=== PATIENT | male | born 1960 | race Caucasian/White ===

== ENCOUNTER 2021-10-16 12:53 | Inpatient (IN) | payer SELFPAY ==
[2021-10-16 13:49] LABS: #Lymphocytes 1.2 thou/uL (1.20-3.40); #Monocytes 0.9 thou/uL (0.11-0.59); #Neutrophils 7.9 thou/uL (1.40-6.50); %Basophils 0.2 % (0.0-1.0); %Eosinophils 0.3 % (0.0-10.0); %Lymphocytes 11.9 % (21.0-51.0); %Neutrophils 78.6 % (42.0-75.0); Hemoglobin 13.6 g/dL (14.0-18.0); Mean Corpuscular Hemoglobin 33.5 pg (27.0-31.0); Mean Corpuscular Volume 98.6 fL (78.0-98.0); Mean Platelet Volume 7.1 fL (7.4-10.4); Platelet Count 188 thou/uL (130-400); RBC Distribution Width 13.5 % (11.5-14.5); Red Blood Cell (RBC) Count 4.04 mill/uL (4.70-6.10); White Blood Cell (WBC) Count 10.1 thou/uL (4.8-10.8)
[2021-10-16 14:12] LABS: ALT (SGPT) 71 U/L (8-55); AST (SGOT) 50 U/L (5-34); Albumin 3.2 g/dL (3.5-5.0); Alkaline Phosphatase 140 U/L (40-110); Anion Gap 18 mmol/L (10-20); BUN (Urea Nitrogen) 13 mg/dL (8.4-25.7); Bilirubin, Total 1.1 mg/dL (0.2-1.2); Calc. Creatinine Clearance 0 mL/min (70-130); Calcium 8.7 mg/dL (7.8-10.44); Carbon Dioxide 23 mmol/L (22-29); Chloride 98 mmol/L (98-107); Globulin 3.1 g/dL (2.4-3.5); Glucose 108 mg/dL (70-105); Magnesium 2.3 mg/dL (1.6-2.6); Potassium 3.7 mmol/L (3.5-5.1); Protein, Total 6.3 g/dL (6.0-8.3); Sodium 135 mmol/L (136-145)
[2021-10-16 16:04] LABS: Bilirubin Negative (Negative); Blood, Urine Negative (Negative); Clarity Clear (Clear); Glucose, Urine (Dipstick) Normal (Negative); Ketone, Urine Negative (Negative); Leukocyte Negative Leu/uL (Negative); Nitrite Negative (Negative); Protein, Urine (Dipstick) Negative (Neg-Trace); Specific Gravity, Urine 1.019 (1.002-1.036)
[2021-10-16 16:46] LABS: SARS-CoV-2 NAA Rapid Test DETECTED (NotDetected)
[2021-10-16 17:18] LABS: Troponin I 0.017 ng/mL (< 0.028)
[2021-10-16 20:33] LABS: Troponin I 0.016 ng/mL (< 0.028)
[2021-10-17] MEDS ORDERED: Ondansetron PF 4 MG/2 ML Vial IVP PRN (03:34)
[2021-10-17] MEDS: methylPREDNISolone Sod Succ 40 MG VIAL IVP SCH ×3 (05:43→17:49)
[2021-10-17 05:45] LABS: #Lymphocytes 0.5 thou/uL (1.20-3.40); #Monocytes 0.3 thou/uL (0.11-0.59); %Eosinophils 0.6 % (0.0-10.0); %Monocytes 4.9 % (0.0-10.0); %Neutrophils 85.5 % (42.0-75.0); Hemoglobin 11.3 g/dL (14.0-18.0); Mean Corpuscular HGB CONC 33.8 g/dL (32.0-36.0); Mean Corpuscular Hemoglobin 33.3 pg (27.0-31.0); Mean Corpuscular Volume 98.4 fL (78.0-98.0); Platelet Count 162 thou/uL (130-400); RBC Distribution Width 13.1 % (11.5-14.5); White Blood Cell (WBC) Count 5.9 thou/uL (4.8-10.8)
[2021-10-17 06:09] LABS: ALT (SGPT) 50 U/L (8-55); AST (SGOT) 27 U/L (5-34); Albumin 2.6 g/dL (3.5-5.0); Alkaline Phosphatase 115 U/L (40-110); Anion Gap 10 mmol/L (10-20); BUN (Urea Nitrogen) 11 mg/dL (8.4-25.7); Bilirubin, Total 0.4 mg/dL (0.2-1.2); Calc. Creatinine Clearance 167 mL/min (70-130); Calcium 8.2 mg/dL (7.8-10.44); Carbon Dioxide 27 mmol/L (22-29); Chloride 96 mmol/L (98-107); Globulin 3.1 g/dL (2.4-3.5); Glucose 184 mg/dL (70-105); Potassium 3.7 mmol/L (3.5-5.1); Protein, Total 5.7 g/dL (6.0-8.3); Sodium 129 mmol/L (136-145)
[2021-10-17] MEDS: Albuterol 200 PUFF (6.7GM INHALER) INH SCH ×5 (06:50→22:43)
[2021-10-17] MEDS: Enoxaparin Sodium 40 MG/0.4 ML SYRINGE SC SCH (08:50)
[2021-10-17] MEDS: Zinc Sulfate 220 MG CAP PO SCH (08:50)
[2021-10-17] MEDS: Ascorbic Acid 500 mg Chewable Tablet PO SCH (08:50)
[2021-10-17] MEDS ORDERED: Lorazepam 1 MG TAB PO PRN (09:42)
[2021-10-17] MEDS ORDERED: Lorazepam 2 MG/ML VIAL IM PRN (09:42)
[2021-10-17] MEDS ORDERED: Electrolyte Replacement Protocol 1 EACH FS SCH (09:45)
[2021-10-17] MEDS ORDERED: hydrALAZINE 20 MG/ML VIAL SLOW IVP PRN (10:06)
[2021-10-17] MEDS ORDERED: Amlodipine 5 MG TAB PO SCH (10:15)
[2021-10-17 10:41] LABS: Phosphorus 2.8 mg/dL (2.3-4.7)
[2021-10-17] MEDS ORDERED: Labetalol HCl 100 MG/20 ML VIAL SLOW IVP PRN (12:40)
[2021-10-17] MEDS ORDERED: Metoprolol Tartrate 5 MG/5 ML VIAL IVP SCH (12:45)
[2021-10-17] MEDS ORDERED: cloNIDine 0.2 MG TAB PO SCH (12:45)
[2021-10-17] MEDS ORDERED: Diltiazem 125 MG in Sodium Chloride 0.9% 100 ML IVPB SCH (13:00)
[2021-10-17] MEDS ORDERED: Magnesium 2 GM/50 ML 2 GM in Premix Bag 1 BAG IVPB SCH (13:00)
[2021-10-17] MEDS ORDERED: Nadolol 40 MG TAB PO SCH (14:00)
[2021-10-17] MEDS: PHOS-NAK 1 PKT PACK PO SCH ×3 (14:19→20:39)
[2021-10-18] MEDS: methylPREDNISolone Sod Succ 40 MG VIAL IVP SCH ×4 (00:11→17:15)
[2021-10-18] MEDS: PHOS-NAK 1 PKT PACK PO SCH (02:28)
[2021-10-18] MEDS: Albuterol 200 PUFF (6.7GM INHALER) INH SCH ×6 (02:29→22:57)
[2021-10-18 06:49] LABS: #Lymphocytes 0.7 thou/uL (1.20-3.40); #Monocytes 0.4 thou/uL (0.11-0.59); #Neutrophils 9.9 thou/uL (1.40-6.50); %Basophils 0.1 % (0.0-1.0); %Eosinophils 0.3 % (0.0-10.0); %Lymphocytes 6.7 % (21.0-51.0); %Monocytes 3.4 % (0.0-10.0); %Neutrophils 89.4 % (42.0-75.0); Hemoglobin 12.1 g/dL (14.0-18.0); Mean Corpuscular Hemoglobin 33.3 pg (27.0-31.0); Mean Platelet Volume 7.3 fL (7.4-10.4); Platelet Count 197 thou/uL (130-400); Red Blood Cell (RBC) Count 3.64 mill/uL (4.70-6.10); White Blood Cell (WBC) Count 11.1 thou/uL (4.8-10.8)
[2021-10-18 07:10] LABS: ALT (SGPT) 50 U/L (8-55); AST (SGOT) 30 U/L (5-34); Albumin 2.7 g/dL (3.5-5.0); Alkaline Phosphatase 106 U/L (40-110); Anion Gap 13 mmol/L (10-20); BUN (Urea Nitrogen) 13 mg/dL (8.4-25.7); Bilirubin, Total 0.5 mg/dL (0.2-1.2); CRP (Inflammatory) 1.59 mg/dL (= or < 0.5); Calc. Creatinine Clearance 170 mL/min (70-130); Calcium 8.5 mg/dL (7.8-10.44); Carbon Dioxide 27 mmol/L (22-29); Chloride 98 mmol/L (98-107); Globulin 3.2 g/dL (2.4-3.5); Glucose 124 mg/dL (70-105); Potassium 4.5 mmol/L (3.5-5.1); Protein, Total 5.9 g/dL (6.0-8.3); Sodium 133 mmol/L (136-145)
[2021-10-18] MEDS: Folic Acid 1 MG TAB PO SCH (08:16)
[2021-10-18] MEDS: Zinc Sulfate 220 MG CAP PO SCH (08:16)
[2021-10-18] MEDS: Enoxaparin Sodium 40 MG/0.4 ML SYRINGE SC SCH (08:16)
[2021-10-18] MEDS: Amlodipine 5 MG TAB PO SCH (08:17)
[2021-10-18] MEDS: Multivit, Therapeutic 1 TAB PO SCH (08:17)
[2021-10-18] MEDS: Ascorbic Acid 500 mg Chewable Tablet PO SCH (08:17)
[2021-10-18] MEDS: Thiamine 100 MG TAB PO SCH (08:17)
[2021-10-18] MEDS ORDERED: Amlodipine 5 MG TAB PO SCH (09:00)
[2021-10-18] MEDS ORDERED: Lorazepam 1 MG TAB PO PRN (09:43)
[2021-10-18] MEDS: Torsemide 20 MG TAB PO SCH (10:00)
[2021-10-18] MEDS: Mometasone 200 MCG/Formoterol 5 MCG 120 PUFF INHALER INH SCH (17:15)
[2021-10-19] MEDS: methylPREDNISolone Sod Succ 40 MG VIAL IVP SCH ×3 (00:48→13:22)
[2021-10-19] MEDS: Albuterol 200 PUFF (6.7GM INHALER) INH SCH ×6 (02:58→23:09)
[2021-10-19] MEDS: Mometasone 200 MCG/Formoterol 5 MCG 120 PUFF INHALER INH SCH ×2 (06:11→18:01)
[2021-10-19 06:49] LABS: #Lymphocytes 0.8 thou/uL (1.20-3.40); #Monocytes 0.6 thou/uL (0.11-0.59); #Neutrophils 8.8 thou/uL (1.40-6.50); %Eosinophils 0.3 % (0.0-10.0); %Lymphocytes 7.8 % (21.0-51.0); %Monocytes 5.4 % (0.0-10.0); %Neutrophils 86.6 % (42.0-75.0); Hemoglobin 12.7 g/dL (14.0-18.0); Mean Corpuscular Volume 97.1 fL (78.0-98.0); Mean Platelet Volume 7.3 fL (7.4-10.4); Platelet Count 220 thou/uL (130-400); Red Blood Cell (RBC) Count 3.96 mill/uL (4.70-6.10); White Blood Cell (WBC) Count 10.2 thou/uL (4.8-10.8)
[2021-10-19 07:01] LABS: ALT (SGPT) 52 U/L (8-55); AST (SGOT) 34 U/L (5-34); Albumin 2.7 g/dL (3.5-5.0); Alkaline Phosphatase 105 U/L (40-110); Anion Gap 12 mmol/L (10-20); BUN (Urea Nitrogen) 15 mg/dL (8.4-25.7); Bilirubin, Total 0.4 mg/dL (0.2-1.2); Calc. Creatinine Clearance 164 mL/min (70-130); Calcium 8.7 mg/dL (7.8-10.44); Carbon Dioxide 25 mmol/L (22-29); Chloride 98 mmol/L (98-107); Globulin 3.3 g/dL (2.4-3.5); Glucose 122 mg/dL (70-105); Potassium 4.2 mmol/L (3.5-5.1); Sodium 131 mmol/L (136-145)
[2021-10-19] MEDS: Enoxaparin Sodium 40 MG/0.4 ML SYRINGE SC SCH (08:11)
[2021-10-19] MEDS: Ascorbic Acid 500 mg Chewable Tablet PO SCH (08:12)
[2021-10-19] MEDS: Zinc Sulfate 220 MG CAP PO SCH (08:12)
[2021-10-19] MEDS: Torsemide 20 MG TAB PO SCH (08:14)
[2021-10-19] MEDS: Amlodipine 5 MG TAB PO SCH (08:14)
[2021-10-19] MEDS: Multivit, Therapeutic 1 TAB PO SCH (08:14)
[2021-10-19] MEDS: Thiamine 100 MG TAB PO SCH (08:14)
[2021-10-19] MEDS: Spironolactone 100 MG TAB PO SCH (08:14)
[2021-10-19] MEDS: Folic Acid 1 MG TAB PO SCH (08:14)
[2021-10-19] MEDS ORDERED: FLU VACC QS2021-22(6MOS UP)/PF 60 MCG/0.5 ML SYRINGE IM ONE (09:00)
[2021-10-19] MEDS ORDERED: Lorazepam 1 MG TAB PO PRN (09:43)
[2021-10-19] MEDS: Dexamethasone 4 MG TAB PO SCH (20:15)
[2021-10-20] MEDS: Albuterol 200 PUFF (6.7GM INHALER) INH SCH ×6 (03:19→23:29)
[2021-10-20 05:54] LABS: Hemoglobin 12.5 g/dL (14.0-18.0); Mean Corpuscular HGB CONC 32.2 g/dL (32.0-36.0); Mean Corpuscular Hemoglobin 31.1 pg (27.0-31.0); Mean Corpuscular Volume 96.5 fL (78.0-98.0); Mean Platelet Volume 7.3 fL (7.4-10.4); Platelet Count 278 thou/uL (130-400); RBC Distribution Width 12.9 % (11.5-14.5); Red Blood Cell (RBC) Count 4.03 mill/uL (4.70-6.10); White Blood Cell (WBC) Count 13.4 thou/uL (4.8-10.8)
[2021-10-20 06:11] LABS: Band 6 % (5-11); MDiff Complete? YES; Monocytes 12 % (0-10); Myelocyte 1 % (0-0); Neutrophil 76 % (42-75)
[2021-10-20] MEDS: Mometasone 200 MCG/Formoterol 5 MCG 120 PUFF INHALER INH SCH ×2 (06:13→18:34)
[2021-10-20 06:31] LABS: ALT (SGPT) 84 U/L (8-55); AST (SGOT) 62 U/L (5-34); Albumin 2.8 g/dL (3.5-5.0); Alkaline Phosphatase 129 U/L (40-110); Anion Gap 14 mmol/L (10-20); BUN (Urea Nitrogen) 19 mg/dL (8.4-25.7); Bilirubin, Total 0.4 mg/dL (0.2-1.2); Calc. Creatinine Clearance 146 mL/min (70-130); Calcium 8.4 mg/dL (7.8-10.44); Carbon Dioxide 26 mmol/L (22-29); Chloride 96 mmol/L (98-107); Globulin 3.3 g/dL (2.4-3.5); Glucose 224 mg/dL (70-105); Potassium 3.6 mmol/L (3.5-5.1); Protein, Total 6.1 g/dL (6.0-8.3); Sodium 132 mmol/L (136-145)
[2021-10-20] MEDS ORDERED: Azithromycin 250 MG TAB PO SCH (09:00)
[2021-10-20] MEDS: Dexamethasone 4 MG TAB PO SCH ×2 (09:33→20:29)
[2021-10-20] MEDS: Ascorbic Acid 500 mg Chewable Tablet PO SCH (09:33)
[2021-10-20] MEDS: Enoxaparin Sodium 40 MG/0.4 ML SYRINGE SC SCH (09:33)
[2021-10-20] MEDS: Thiamine 100 MG TAB PO SCH (09:35)
[2021-10-20] MEDS: Zinc Sulfate 220 MG CAP PO SCH (09:35)
[2021-10-20] MEDS: Multivit, Therapeutic 1 TAB PO SCH (09:36)
[2021-10-20] MEDS: Folic Acid 1 MG TAB PO SCH (09:36)
[2021-10-20] MEDS: Spironolactone 100 MG TAB PO SCH (09:36)
[2021-10-20] MEDS: Amlodipine 5 MG TAB PO SCH (09:36)
[2021-10-20] MEDS: Torsemide 20 MG TAB PO SCH (09:37)
[2021-10-20] MEDS ORDERED: Lorazepam 0.5 MG TAB PO PRN (09:43)
[2021-10-21] MEDS: Albuterol 200 PUFF (6.7GM INHALER) INH SCH ×6 (02:52→22:22)
[2021-10-21] MEDS: Mometasone 200 MCG/Formoterol 5 MCG 120 PUFF INHALER INH SCH ×2 (05:55→19:46)
[2021-10-21] MEDS: Nitroglycerin 2% Ointment 1 INCH/1 GM Packet ONE ×2 (07:42→10:05)
[2021-10-21] MEDS: Amlodipine 5 MG TAB PO SCH (07:43)
[2021-10-21] MEDS: Spironolactone 100 MG TAB PO SCH (07:43)
[2021-10-21] MEDS ORDERED: Enoxaparin Sodium 80 MG/0.8 ML SYRINGE SC SCH (07:45)
[2021-10-21] MEDS: Ascorbic Acid 500 mg Chewable Tablet PO SCH (07:47)
[2021-10-21] MEDS: Dexamethasone 4 MG TAB PO SCH ×2 (07:50→20:46)
[2021-10-21] MEDS: Folic Acid 1 MG TAB PO SCH (07:50)
[2021-10-21] MEDS: Multivit, Therapeutic 1 TAB PO SCH (07:50)
[2021-10-21] MEDS: Thiamine 100 MG TAB PO SCH (07:53)
[2021-10-21] MEDS: Zinc Sulfate 220 MG CAP PO SCH (07:54)
[2021-10-21] MEDS: Torsemide 20 MG TAB PO SCH (07:54)
[2021-10-21] MEDS ORDERED: Nitroglycerin 2% Ointment 1 INCH/1 GM Packet TOP SCH (08:00)
[2021-10-21] MEDS: Doxycycline 100 MG CAP PO SCH ×2 (09:02→20:46)
[2021-10-21] MEDS: Nitroglycerin 2% Ointment 1 INCH/1 GM Packet TOP SCH ×2 (10:06→19:55)
[2021-10-21 12:40] LABS: Hemoglobin 13.4 g/dL (14.0-18.0); Mean Corpuscular Hemoglobin 32.4 pg (27.0-31.0); Mean Corpuscular Volume 98.2 fL (78.0-98.0); Mean Platelet Volume 7.2 fL (7.4-10.4); Platelet Count 302 thou/uL (130-400); Red Blood Cell (RBC) Count 4.14 mill/uL (4.70-6.10); White Blood Cell (WBC) Count 15.2 thou/uL (4.8-10.8)
[2021-10-21 12:51] LABS: Anion Gap 14 mmol/L (10-20); BUN (Urea Nitrogen) 17 mg/dL (8.4-25.7); Calc. Creatinine Clearance 135 mL/min (70-130); Calcium 8.3 mg/dL (7.8-10.44); Carbon Dioxide 32 mmol/L (22-29); Chloride 92 mmol/L (98-107); Glucose 233 mg/dL (70-105); Potassium 3.4 mmol/L (3.5-5.1); Sodium 135 mmol/L (136-145)
[2021-10-21] MEDS ORDERED: Potassium Chloride 20 MEQ TAB PO SCH (13:15)
[2021-10-21 13:55] LABS: Band 3 % (5-11); Lymphocytes 9 % (21-51); MDiff Complete? YES; Monocytes 5 % (0-10); Neutrophil 82 % (42-75); Platelet Morphology Comment Appears Adequate; Polychromasia SLIGHT = 2-3 cells (100X) (0-2/hpf)
[2021-10-22] MEDS: Albuterol 200 PUFF (6.7GM INHALER) INH SCH ×6 (02:59→22:27)
[2021-10-22] MEDS: Mometasone 200 MCG/Formoterol 5 MCG 120 PUFF INHALER INH SCH ×2 (05:39→17:45)
[2021-10-22] MEDS: Ascorbic Acid 500 mg Chewable Tablet PO SCH (08:11)
[2021-10-22] MEDS: Multivit, Therapeutic 1 TAB PO SCH (08:11)
[2021-10-22] MEDS: Dexamethasone 4 MG TAB PO SCH ×2 (08:11→21:38)
[2021-10-22] MEDS: Enoxaparin Sodium 40 MG/0.4 ML SYRINGE SC SCH (08:11)
[2021-10-22] MEDS: Thiamine 100 MG TAB PO SCH (08:12)
[2021-10-22] MEDS: Nitroglycerin 2% Ointment 1 INCH/1 GM Packet TOP SCH ×2 (08:12)
[2021-10-22] MEDS: Zinc Sulfate 220 MG CAP PO SCH (08:12)
[2021-10-22] MEDS: Spironolactone 100 MG TAB PO SCH (08:12)
[2021-10-22] MEDS: Torsemide 20 MG TAB PO SCH (08:12)
[2021-10-22] MEDS: Amlodipine 5 MG TAB PO SCH (08:13)
[2021-10-22] MEDS: Folic Acid 1 MG TAB PO SCH (08:13)
[2021-10-22] MEDS: Doxycycline 100 MG CAP PO SCH ×2 (08:13→21:38)
[2021-10-23] MEDS: Albuterol 200 PUFF (6.7GM INHALER) INH SCH ×6 (02:30→23:05)
[2021-10-23] MEDS: Mometasone 200 MCG/Formoterol 5 MCG 120 PUFF INHALER INH SCH ×2 (06:11→19:17)
[2021-10-23 08:37] LABS: Hemoglobin 12.3 g/dL (14.0-18.0); Mean Corpuscular Hemoglobin 31.6 pg (27.0-31.0); Mean Corpuscular Volume 98.7 fL (78.0-98.0); Mean Platelet Volume 7.1 fL (7.4-10.4); Platelet Count 285 thou/uL (130-400); RBC Distribution Width 13.3 % (11.5-14.5); Red Blood Cell (RBC) Count 3.88 mill/uL (4.70-6.10); White Blood Cell (WBC) Count 24.6 thou/uL (4.8-10.8)
[2021-10-23 08:57] LABS: Anion Gap 14 mmol/L (10-20); BUN (Urea Nitrogen) 23 mg/dL (8.4-25.7); Calc. Creatinine Clearance 136 mL/min (70-130); Calcium 8.6 mg/dL (7.8-10.44); Carbon Dioxide 29 mmol/L (22-29); Chloride 98 mmol/L (98-107); Glucose 207 mg/dL (70-105); Potassium 4.6 mmol/L (3.5-5.1); Sodium 136 mmol/L (136-145)
[2021-10-23] MEDS: Thiamine 100 MG TAB PO SCH (09:05)
[2021-10-23] MEDS: Folic Acid 1 MG TAB PO SCH (09:05)
[2021-10-23] MEDS: Multivit, Therapeutic 1 TAB PO SCH (09:06)
[2021-10-23] MEDS: Zinc Sulfate 220 MG CAP PO SCH (09:06)
[2021-10-23] MEDS: Torsemide 20 MG TAB PO SCH (09:06)
[2021-10-23] MEDS: Ascorbic Acid 500 mg Chewable Tablet PO SCH (09:06)
[2021-10-23] MEDS: Amlodipine 5 MG TAB PO SCH (09:06)
[2021-10-23] MEDS: Doxycycline 100 MG CAP PO SCH ×2 (09:06→20:38)
[2021-10-23] MEDS: Dexamethasone 4 MG TAB PO SCH (09:06)
[2021-10-23] MEDS: Spironolactone 100 MG TAB PO SCH (09:06)
[2021-10-23] MEDS: Enoxaparin Sodium 40 MG/0.4 ML SYRINGE SC SCH (09:07)
[2021-10-23 09:45] LABS: Band 3 % (5-11); Lymphocytes 8 % (21-51); MDiff Complete? YES; Metamyelocyte 3 % (0-0); Monocytes 4 % (0-10); Myelocyte 3 % (0-0); Neutrophil 79 % (42-75); Platelet Morphology Comment Appears Adequate; Polychromasia SLIGHT = 2-3 cells (100X) (0-2/hpf)
[2021-10-24] MEDS: Albuterol 200 PUFF (6.7GM INHALER) INH SCH ×6 (02:31→20:49)
[2021-10-24] MEDS: Mometasone 200 MCG/Formoterol 5 MCG 120 PUFF INHALER INH SCH ×2 (06:29→18:18)
[2021-10-24 06:42] LABS: Anion Gap 15 mmol/L (10-20); BUN (Urea Nitrogen) 24 mg/dL (8.4-25.7); CRP (Inflammatory) Less than 0.50 mg/dL (= or < 0.5); Calc. Creatinine Clearance 141 mL/min (70-130); Calcium 8.9 mg/dL (7.8-10.44); Carbon Dioxide 27 mmol/L (22-29); Chloride 96 mmol/L (98-107); Glucose 168 mg/dL (70-105); Sodium 134 mmol/L (136-145)
[2021-10-24 06:45] LABS: Band 12 % (5-11); Hemoglobin 12.6 g/dL (14.0-18.0); Lymphocytes 6 % (21-51); MDiff Complete? YES; Mean Corpuscular HGB CONC 32.9 g/dL (32.0-36.0); Mean Corpuscular Hemoglobin 32.7 pg (27.0-31.0); Mean Corpuscular Volume 99.3 fL (78.0-98.0); Mean Platelet Volume 6.9 fL (7.4-10.4); Monocytes 4 % (0-10); Myelocyte 3 % (0-0); Neutrophil 75 % (42-75); Platelet Count 298 thou/uL (130-400); RBC Distribution Width 13.2 % (11.5-14.5); Red Blood Cell (RBC) Count 3.87 mill/uL (4.70-6.10); White Blood Cell (WBC) Count 27.9 thou/uL (4.8-10.8)
[2021-10-24] MEDS: Doxycycline 100 MG CAP PO SCH ×2 (10:56→20:45)
[2021-10-24] MEDS: Multivit, Therapeutic 1 TAB PO SCH (10:56)
[2021-10-24] MEDS: Torsemide 20 MG TAB PO SCH (10:56)
[2021-10-24] MEDS: Amlodipine 5 MG TAB PO SCH (10:56)
[2021-10-24] MEDS: Zinc Sulfate 220 MG CAP PO SCH (10:56)
[2021-10-24] MEDS: Spironolactone 100 MG TAB PO SCH (10:57)
[2021-10-24] MEDS: Thiamine 100 MG TAB PO SCH (10:57)
[2021-10-24] MEDS: Dexamethasone 4 MG TAB PO SCH (10:57)
[2021-10-24] MEDS: Ascorbic Acid 500 mg Chewable Tablet PO SCH (10:57)
[2021-10-24] MEDS: Folic Acid 1 MG TAB PO SCH (10:57)
[2021-10-24] MEDS: Enoxaparin Sodium 40 MG/0.4 ML SYRINGE SC SCH (10:58)
[2021-10-24] MEDS: guaiFENesin ER 600 MG TAB PO SCH (20:46)
[2021-10-25] MEDS: Albuterol 200 PUFF (6.7GM INHALER) INH SCH ×6 (03:46→19:57)
[2021-10-25 06:30] LABS: Mean Corpuscular HGB CONC 32.7 g/dL (32.0-36.0); Mean Corpuscular Hemoglobin 32.1 pg (27.0-31.0); Mean Corpuscular Volume 98.2 fL (78.0-98.0); Mean Platelet Volume 7.2 fL (7.4-10.4); Platelet Count 256 thou/uL (130-400); RBC Distribution Width 13.4 % (11.5-14.5); Red Blood Cell (RBC) Count 3.73 mill/uL (4.70-6.10); White Blood Cell (WBC) Count 26.7 thou/uL (4.8-10.8)
[2021-10-25 06:45] LABS: Anion Gap 14 mmol/L (10-20); BUN (Urea Nitrogen) 25 mg/dL (8.4-25.7); CRP (Inflammatory) Less than 0.50 mg/dL (= or < 0.5); Calc. Creatinine Clearance 136 mL/min (70-130); Calcium 8.6 mg/dL (7.8-10.44); Carbon Dioxide 25 mmol/L (22-29); Chloride 97 mmol/L (98-107); Glucose 221 mg/dL (70-105); Potassium 4.3 mmol/L (3.5-5.1); Sodium 132 mmol/L (136-145)
[2021-10-25 09:51] LABS: Band 11 % (5-11); Lymphocytes 4 % (21-51); MDiff Complete? YES; Metamyelocyte 3 % (0-0); Monocytes 7 % (0-10); Myelocyte 1 % (0-0); Neutrophil 68 % (42-75); Platelet Morphology Comment Appears Adequate; Polychromasia SLIGHT = 2-3 cells (100X) (0-2/hpf); Reactive Lymphocytes 6 % (0-10)
[2021-10-25] MEDS: Amlodipine 5 MG TAB PO SCH (10:39)
[2021-10-25] MEDS: Doxycycline 100 MG CAP PO SCH ×2 (10:39→19:56)
[2021-10-25] MEDS: Enoxaparin Sodium 40 MG/0.4 ML SYRINGE SC SCH (10:39)
[2021-10-25] MEDS: Zinc Sulfate 220 MG CAP PO SCH (10:39)
[2021-10-25] MEDS: Multivit, Therapeutic 1 TAB PO SCH (10:39)
[2021-10-25] MEDS: Thiamine 100 MG TAB PO SCH (10:39)
[2021-10-25] MEDS: Folic Acid 1 MG TAB PO SCH (10:40)
[2021-10-25] MEDS: Spironolactone 100 MG TAB PO SCH (10:40)
[2021-10-25] MEDS: Ascorbic Acid 500 mg Chewable Tablet PO SCH (10:40)
[2021-10-25] MEDS: guaiFENesin ER 600 MG TAB PO SCH ×2 (10:40→19:56)
[2021-10-25] MEDS: Dexamethasone 4 MG TAB PO SCH (10:40)
[2021-10-25] MEDS: Mometasone 200 MCG/Formoterol 5 MCG 120 PUFF INHALER INH SCH ×2 (10:41→18:39)
[2021-10-25] MEDS: Torsemide 20 MG TAB PO SCH (10:41)
[2021-10-26] MEDS: Acetaminophen 500 MG TAB PO PRN (02:49)
[2021-10-26] MEDS: Albuterol 200 PUFF (6.7GM INHALER) INH SCH ×6 (02:58→23:13)
[2021-10-26] MEDS: Mometasone 200 MCG/Formoterol 5 MCG 120 PUFF INHALER INH SCH ×2 (06:55→18:13)
[2021-10-26 08:29] LABS: Hemoglobin 11.9 g/dL (14.0-18.0); Mean Corpuscular HGB CONC 32.9 g/dL (32.0-36.0); Mean Corpuscular Hemoglobin 32.4 pg (27.0-31.0); Mean Corpuscular Volume 98.5 fL (78.0-98.0); Mean Platelet Volume 7.2 fL (7.4-10.4); Platelet Count 246 thou/uL (130-400); RBC Distribution Width 13.3 % (11.5-14.5); Red Blood Cell (RBC) Count 3.68 mill/uL (4.70-6.10); White Blood Cell (WBC) Count 24.9 thou/uL (4.8-10.8)
[2021-10-26 08:34] LABS: Anion Gap 13 mmol/L (10-20); BUN (Urea Nitrogen) 24 mg/dL (8.4-25.7); CRP (Inflammatory) Less than 0.50 mg/dL (= or < 0.5); Calc. Creatinine Clearance 147 mL/min (70-130); Calcium 8.9 mg/dL (7.8-10.44); Carbon Dioxide 27 mmol/L (22-29); Chloride 95 mmol/L (98-107); Glucose 146 mg/dL (70-105); Potassium 4.4 mmol/L (3.5-5.1); Sodium 131 mmol/L (136-145)
[2021-10-26] MEDS: Dexamethasone 4 MG TAB PO SCH (08:49)
[2021-10-26] MEDS: Spironolactone 100 MG TAB PO SCH (08:52)
[2021-10-26] MEDS: Amlodipine 5 MG TAB PO SCH (08:52)
[2021-10-26] MEDS: Ascorbic Acid 500 mg Chewable Tablet PO SCH (08:53)
[2021-10-26] MEDS: Doxycycline 100 MG CAP PO SCH ×2 (08:53→20:27)
[2021-10-26] MEDS: Enoxaparin Sodium 40 MG/0.4 ML SYRINGE SC SCH (08:53)
[2021-10-26] MEDS: Folic Acid 1 MG TAB PO SCH (08:54)
[2021-10-26] MEDS: Multivit, Therapeutic 1 TAB PO SCH (08:55)
[2021-10-26] MEDS: guaiFENesin ER 600 MG TAB PO SCH ×2 (08:55→20:27)
[2021-10-26] MEDS: Torsemide 20 MG TAB PO SCH (08:56)
[2021-10-26] MEDS: Zinc Sulfate 220 MG CAP PO SCH (08:57)
[2021-10-26] MEDS: Thiamine 100 MG TAB PO SCH (08:57)
[2021-10-26 09:07] LABS: Band 10 % (5-11); Lymphocytes 4 % (21-51); MDiff Complete? YES; Metamyelocyte 2 % (0-0); Monocytes 3 % (0-10); Myelocyte 6 % (0-0); Neutrophil 69 % (42-75); Platelet Morphology Comment Appears Adequate; Polychromasia SLIGHT = 2-3 cells (100X) (0-2/hpf); Reactive Lymphocytes 6 % (0-10)
[2021-10-27] MEDS: Albuterol 200 PUFF (6.7GM INHALER) INH SCH ×6 (03:26→23:06)
[2021-10-27] MEDS: Acetaminophen 500 MG TAB PO PRN ×2 (04:54→21:29)
[2021-10-27] MEDS: Mometasone 200 MCG/Formoterol 5 MCG 120 PUFF INHALER INH SCH ×2 (06:27→18:33)
[2021-10-27] MEDS: Doxycycline 100 MG CAP PO SCH ×2 (08:35→20:08)
[2021-10-27] MEDS: Zinc Sulfate 220 MG CAP PO SCH (08:35)
[2021-10-27] MEDS: Ascorbic Acid 500 mg Chewable Tablet PO SCH (08:35)
[2021-10-27] MEDS: Multivit, Therapeutic 1 TAB PO SCH (08:35)
[2021-10-27] MEDS: guaiFENesin ER 600 MG TAB PO SCH ×2 (08:35→20:09)
[2021-10-27] MEDS: Thiamine 100 MG TAB PO SCH (08:35)
[2021-10-27] MEDS: Folic Acid 1 MG TAB PO SCH (08:35)
[2021-10-27] MEDS: Amlodipine 5 MG TAB PO SCH (08:36)
[2021-10-27] MEDS: Dexamethasone 4 MG TAB PO SCH (08:36)
[2021-10-27] MEDS: Torsemide 20 MG TAB PO SCH (08:36)
[2021-10-27] MEDS: Spironolactone 100 MG TAB PO SCH (08:36)
[2021-10-27] MEDS: Enoxaparin Sodium 40 MG/0.4 ML SYRINGE SC SCH (08:37)
[2021-10-27 12:04] LABS: Hemoglobin 12.5 g/dL (14.0-18.0); Mean Corpuscular HGB CONC 32.4 g/dL (32.0-36.0); Mean Corpuscular Volume 98.7 fL (78.0-98.0); Mean Platelet Volume 7.2 fL (7.4-10.4); Platelet Count 273 thou/uL (130-400); RBC Distribution Width 13.4 % (11.5-14.5); White Blood Cell (WBC) Count 28.6 thou/uL (4.8-10.8)
[2021-10-27 12:12] LABS: Anion Gap 13 mmol/L (10-20); BUN (Urea Nitrogen) 25 mg/dL (8.4-25.7); Calc. Creatinine Clearance 140 mL/min (70-130); Calcium 8.8 mg/dL (7.8-10.44); Carbon Dioxide 27 mmol/L (22-29); Chloride 95 mmol/L (98-107); Glucose 230 mg/dL (70-105); Potassium 4.4 mmol/L (3.5-5.1); Sodium 131 mmol/L (136-145)
[2021-10-27 12:49] LABS: Band 6 % (5-11); Lymphocytes 2 % (21-51); MDiff Complete? YES; Metamyelocyte 4 % (0-0); Monocytes 6 % (0-10); Myelocyte 2 % (0-0); Neutrophil 79 % (42-75); Platelet Morphology Comment Appears Adequate; Polychromasia SLIGHT = 2-3 cells (100X) (0-2/hpf); Reactive Lymphocytes 1 % (0-10); Vacuoles SLIGHT
[2021-10-27] MEDS: Nystatin 500,000 UNITS/5 ML UDCUP SSW SCH (20:09)
[2021-10-28] MEDS: Albuterol 200 PUFF (6.7GM INHALER) INH SCH ×6 (02:49→20:00)
[2021-10-28] MEDS: Mometasone 200 MCG/Formoterol 5 MCG 120 PUFF INHALER INH SCH (06:26)
[2021-10-28] MEDS: Acetaminophen 500 MG TAB PO PRN ×2 (06:26→15:15)
[2021-10-28 06:47] LABS: Anion Gap 14 mmol/L (10-20); BUN (Urea Nitrogen) 19 mg/dL (8.4-25.7); Calc. Creatinine Clearance 152 mL/min (70-130); Calcium 8.9 mg/dL (7.8-10.44); Carbon Dioxide 24 mmol/L (22-29); Chloride 96 mmol/L (98-107); Glucose 146 mg/dL (70-105); Potassium 4.2 mmol/L (3.5-5.1); Sodium 130 mmol/L (136-145)
[2021-10-28 06:51] LABS: Band 5 % (5-11); Hemoglobin 12.3 g/dL (14.0-18.0); Hypochromia SLIGHT = 6-15 cells (100X) (0-5/hpf); Lymphocytes 12 % (21-51); MDiff Complete? YES; Mean Corpuscular HGB CONC 33.1 g/dL (32.0-36.0); Mean Corpuscular Hemoglobin 32.5 pg (27.0-31.0); Mean Corpuscular Volume 98.3 fL (78.0-98.0); Monocytes 10 % (0-10); Neutrophil 73 % (42-75); Platelet Count 250 thou/uL (130-400); Platelet Morphology Comment Appears Adequate; RBC Distribution Width 13.5 % (11.5-14.5); Red Blood Cell (RBC) Count 3.79 mill/uL (4.70-6.10); White Blood Cell (WBC) Count 27.2 thou/uL (4.8-10.8)
[2021-10-28] MEDS: Doxycycline 100 MG CAP PO SCH (08:27)
[2021-10-28] MEDS: Zinc Sulfate 220 MG CAP PO SCH (08:27)
[2021-10-28] MEDS: Spironolactone 100 MG TAB PO SCH (08:27)
[2021-10-28] MEDS: Enoxaparin Sodium 40 MG/0.4 ML SYRINGE SC SCH (08:27)
[2021-10-28] MEDS: Nystatin 500,000 UNITS/5 ML UDCUP SSW SCH (08:28)
[2021-10-28] MEDS: Thiamine 100 MG TAB PO SCH (08:28)
[2021-10-28] MEDS: Folic Acid 1 MG TAB PO SCH (08:28)
[2021-10-28] MEDS: Ascorbic Acid 500 mg Chewable Tablet PO SCH (08:28)
[2021-10-28] MEDS: guaiFENesin ER 600 MG TAB PO SCH ×2 (08:28→20:14)
[2021-10-28] MEDS: Multivit, Therapeutic 1 TAB PO SCH (08:28)
[2021-10-28] MEDS: Torsemide 20 MG TAB PO SCH (08:28)
[2021-10-28] MEDS: Amlodipine 5 MG TAB PO SCH (08:28)
[2021-10-28] MEDS ORDERED: Fluconazole 100 MG TAB PO SCH (13:15)
[2021-10-28] MEDS: LIDOCAINE 2% SSW SCH ×3 (15:16→20:22)
[2021-10-28] MEDS: NYSTATIN SSW SCH ×3 (15:16→20:22)
[2021-10-28] MEDS: [UNRECOGNIZED DRUG - OTHER] SSW SCH ×3 (15:16→20:22)
[2021-10-28] MEDS ORDERED: Fluconazole In NaCl,Iso-Osm 200 MG in Premix Bag 1 BAG IVPB SCH (16:15)
[2021-10-28 18:54] LABS: Troponin I 0.021 ng/mL (< 0.028)
[2021-10-29] MEDS ORDERED: traZODone HCl 50 MG TAB PO PRN (01:09)
[2021-10-29] MEDS: Albuterol 200 PUFF (6.7GM INHALER) INH SCH ×7 (03:00→23:42)
[2021-10-29] MEDS: Mometasone 200 MCG/Formoterol 5 MCG 120 PUFF INHALER INH SCH ×3 (03:00→18:14)
[2021-10-29 06:47] LABS: Hemoglobin 12.2 g/dL (14.0-18.0); Mean Corpuscular HGB CONC 32.7 g/dL (32.0-36.0); Mean Corpuscular Hemoglobin 32.2 pg (27.0-31.0); Mean Corpuscular Volume 98.3 fL (78.0-98.0); Mean Platelet Volume 7.1 fL (7.4-10.4); Platelet Count 235 thou/uL (130-400); RBC Distribution Width 13.5 % (11.5-14.5)
[2021-10-29 06:48] LABS: Band 7 % (5-11); Lymphocytes 9 % (21-51); MDiff Complete? YES; Metamyelocyte 3 % (0-0); Monocytes 14 % (0-10); Myelocyte 4 % (0-0); Neutrophil 62 % (42-75); Platelet Morphology Comment Appears Adequate; RBC Morphology Normal; Reactive Lymphocytes 1 % (0-10)
[2021-10-29 06:52] LABS: Anion Gap 12 mmol/L (10-20); BUN (Urea Nitrogen) 25 mg/dL (8.4-25.7); Calc. Creatinine Clearance 143 mL/min (70-130); Calcium 8.7 mg/dL (7.8-10.44); Carbon Dioxide 25 mmol/L (22-29); Chloride 98 mmol/L (98-107); Glucose 104 mg/dL (70-105); Potassium 4.3 mmol/L (3.5-5.1); Sodium 131 mmol/L (136-145)
[2021-10-29] MEDS ORDERED: Fluconazole 100 MG TAB PO SCH (09:00)
[2021-10-29] MEDS: Spironolactone 100 MG TAB PO SCH (09:03)
[2021-10-29] MEDS: Amlodipine 5 MG TAB PO SCH (09:03)
[2021-10-29] MEDS: Enoxaparin Sodium 40 MG/0.4 ML SYRINGE SC SCH (09:04)
[2021-10-29] MEDS: Fluconazole In NaCl,Iso-Osm 200 MG in Premix Bag 1 BAG IVPB SCH (09:04)
[2021-10-29] MEDS: Ascorbic Acid 500 mg Chewable Tablet PO SCH (09:04)
[2021-10-29] MEDS: Torsemide 20 MG TAB PO SCH (09:05)
[2021-10-29] MEDS: Folic Acid 1 MG TAB PO SCH (09:05)
[2021-10-29] MEDS: guaiFENesin ER 600 MG TAB PO SCH ×2 (09:05→20:11)
[2021-10-29] MEDS: Thiamine 100 MG TAB PO SCH (09:05)
[2021-10-29] MEDS: LIDOCAINE 2% SSW SCH ×3 (09:06→20:10)
[2021-10-29] MEDS: Multivit, Therapeutic 1 TAB PO SCH (09:06)
[2021-10-29] MEDS: Zinc Sulfate 220 MG CAP PO SCH (09:06)
[2021-10-29] MEDS: NYSTATIN SSW SCH ×3 (09:06→20:10)
[2021-10-29] MEDS: [UNRECOGNIZED DRUG - OTHER] SSW SCH ×3 (09:06→20:10)
[2021-10-29 13:14] LABS: HBCM Index 0.08 S/CO (0-0.79); HBSAg Index 0.28 S/CO (0-0.99); HIV (1/2) Antibody/Antigen Non-Reactive (NonReactive); HIV 1/2 INDEX 0.17 S/CO (<1.00); Hep A IgM AB Non-Reactive (NonReactive); Hep A IgM S/CO 0.21 S/CO (0-0.79); Hep B Surf Ag Non-Reactive S/CO (NonReactive); Hep C IgG Ab Non-Reactive (NonReactive); Hep C Index 0.18 S/CO (0-0.79); Hepatitis B Core IgM Abs Non-Reactive (NonReactive)
[2021-10-29] MEDS: Acetaminophen 500 MG TAB PO PRN (20:17)
[2021-10-30] MEDS: Albuterol 200 PUFF (6.7GM INHALER) INH SCH ×6 (05:38→23:36)
[2021-10-30 05:41] LABS: Band 13 % (5-11); Hemoglobin 12.4 g/dL (14.0-18.0); Hypochromia SLIGHT = 6-15 cells (100X) (0-5/hpf); Lymphocytes 9 % (21-51); MDiff Complete? YES; Mean Corpuscular Hemoglobin 32.1 pg (27.0-31.0); Mean Corpuscular Volume 97.3 fL (78.0-98.0); Mean Platelet Volume 7.1 fL (7.4-10.4); Monocytes 18 % (0-10); Neutrophil 60 % (42-75); Platelet Count 213 thou/uL (130-400); Platelet Morphology Comment Appears Adequate; RBC Distribution Width 13.7 % (11.5-14.5); Red Blood Cell (RBC) Count 3.85 mill/uL (4.70-6.10); White Blood Cell (WBC) Count 22.5 thou/uL (4.8-10.8)
[2021-10-30 05:45] LABS: Anion Gap 13 mmol/L (10-20); BUN (Urea Nitrogen) 27 mg/dL (8.4-25.7); Calc. Creatinine Clearance 129 mL/min (70-130); Calcium 8.6 mg/dL (7.8-10.44); Carbon Dioxide 26 mmol/L (22-29); Chloride 96 mmol/L (98-107); Glucose 115 mg/dL (70-105); Potassium 3.8 mmol/L (3.5-5.1); Sodium 131 mmol/L (136-145)
[2021-10-30] MEDS: Mometasone 200 MCG/Formoterol 5 MCG 120 PUFF INHALER INH SCH ×2 (05:52→21:09)
[2021-10-30] MEDS: Amlodipine 5 MG TAB PO SCH (09:15)
[2021-10-30] MEDS: Spironolactone 100 MG TAB PO SCH (09:15)
[2021-10-30] MEDS: Folic Acid 1 MG TAB PO SCH (09:16)
[2021-10-30] MEDS: Enoxaparin Sodium 40 MG/0.4 ML SYRINGE SC SCH (09:16)
[2021-10-30] MEDS: Ascorbic Acid 500 mg Chewable Tablet PO SCH (09:16)
[2021-10-30] MEDS: Multivit, Therapeutic 1 TAB PO SCH (09:17)
[2021-10-30] MEDS: Thiamine 100 MG TAB PO SCH (09:17)
[2021-10-30] MEDS: Zinc Sulfate 220 MG CAP PO SCH (09:17)
[2021-10-30] MEDS: Torsemide 20 MG TAB PO SCH (09:17)
[2021-10-30] MEDS: guaiFENesin ER 600 MG TAB PO SCH ×2 (09:17→21:11)
[2021-10-30] MEDS: LIDOCAINE 2% SSW SCH ×3 (12:40→21:13)
[2021-10-30] MEDS: [UNRECOGNIZED DRUG - OTHER] SSW SCH ×3 (12:40→21:13)
[2021-10-30] MEDS: Fluconazole In NaCl,Iso-Osm 200 MG in Premix Bag 1 BAG IVPB SCH ×3 (12:40→15:14)
[2021-10-30] MEDS: NYSTATIN SSW SCH ×3 (12:40→21:13)
[2021-10-30] MEDS: Sodium Chloride 1 GM TAB PO SCH ×2 (15:13→21:14)
[2021-10-30] MEDS ORDERED: traMADol HCl 50 MG TAB PO SCH (20:44)
[2021-10-30] MEDS: Ciprofloxacin 0.2% Otic (0.25ML CONTAINER) EA EAR SCH (21:14)
[2021-10-31] MEDS: Albuterol 200 PUFF (6.7GM INHALER) INH SCH ×6 (03:39→21:40)
[2021-10-31] MEDS: Lorazepam 0.5 MG TAB PO PRN ×2 (03:44→21:37)
[2021-10-31 05:14] LABS: Band 10 % (5-11); Hemoglobin 12.5 g/dL (14.0-18.0); Lymphocytes 4 % (21-51); MDiff Complete? YES; Mean Corpuscular HGB CONC 33.1 g/dL (32.0-36.0); Mean Corpuscular Hemoglobin 32.7 pg (27.0-31.0); Mean Corpuscular Volume 98.7 fL (78.0-98.0); Mean Platelet Volume 7.3 fL (7.4-10.4); Metamyelocyte 2 % (0-0); Monocytes 7 % (0-10); Neutrophil 77 % (42-75); Platelet Count 189 thou/uL (130-400); Platelet Morphology Comment Appears Adequate; RBC Distribution Width 13.8 % (11.5-14.5); Red Blood Cell (RBC) Count 3.82 mill/uL (4.70-6.10); White Blood Cell (WBC) Count 22.2 thou/uL (4.8-10.8)
[2021-10-31 05:20] LABS: Anion Gap 12 mmol/L (10-20); BUN (Urea Nitrogen) 22 mg/dL (8.4-25.7); Calc. Creatinine Clearance 143 mL/min (70-130); Calcium 8.5 mg/dL (7.8-10.44); Carbon Dioxide 22 mmol/L (22-29); Chloride 98 mmol/L (98-107); Glucose 144 mg/dL (70-105); Potassium 3.4 mmol/L (3.5-5.1); Sodium 129 mmol/L (136-145)
[2021-10-31] MEDS: Acetaminophen 500 MG TAB PO PRN (05:35)
[2021-10-31] MEDS: Mometasone 200 MCG/Formoterol 5 MCG 120 PUFF INHALER INH SCH ×2 (05:36→17:25)
[2021-10-31] MEDS ORDERED: Potassium Chloride 20 MEQ TAB PO SCH (06:45)
[2021-10-31] MEDS: Enoxaparin Sodium 40 MG/0.4 ML SYRINGE SC SCH (08:12)
[2021-10-31] MEDS: Torsemide 20 MG TAB PO SCH (08:12)
[2021-10-31] MEDS: Spironolactone 100 MG TAB PO SCH (08:12)
[2021-10-31] MEDS: Zinc Sulfate 220 MG CAP PO SCH (08:12)
[2021-10-31] MEDS: Thiamine 100 MG TAB PO SCH (08:12)
[2021-10-31] MEDS: Fluconazole In NaCl,Iso-Osm 200 MG in Premix Bag 1 BAG IVPB SCH (08:12)
[2021-10-31] MEDS: Amlodipine 5 MG TAB PO SCH ×2 (08:13→21:37)
[2021-10-31] MEDS: Ascorbic Acid 500 mg Chewable Tablet PO SCH (08:13)
[2021-10-31] MEDS: guaiFENesin ER 600 MG TAB PO SCH ×2 (08:13→21:37)
[2021-10-31] MEDS: Folic Acid 1 MG TAB PO SCH (08:13)
[2021-10-31] MEDS: LIDOCAINE 2% SSW SCH ×3 (08:14→21:38)
[2021-10-31] MEDS: [UNRECOGNIZED DRUG - OTHER] SSW SCH ×3 (08:14→21:38)
[2021-10-31] MEDS: Multivit, Therapeutic 1 TAB PO SCH (08:14)
[2021-10-31] MEDS: NYSTATIN SSW SCH ×3 (08:14→21:38)
[2021-10-31] MEDS: Sodium Chloride 1 GM TAB PO SCH (09:22)
[2021-10-31] MEDS: Ciprofloxacin 0.2% Otic (0.25ML CONTAINER) EA EAR SCH ×2 (10:57→21:38)
[2021-10-31 13:56] LABS: Potassium 3.8 mmol/L (3.5-5.1)
[2021-11-01] MEDS: Albuterol 200 PUFF (6.7GM INHALER) INH SCH ×6 (03:59→21:54)
[2021-11-01] MEDS: Mometasone 200 MCG/Formoterol 5 MCG 120 PUFF INHALER INH SCH ×2 (05:32→17:53)
[2021-11-01 05:51] LABS: #Basophils 0.1 thou/uL (0.0-0.2); #Eosinphils 0.5 thou/uL (0.0-0.7); #Monocytes 1.9 thou/uL (0.11-0.59); #Neutrophils 14.1 thou/uL (1.40-6.50); %Basophils 0.5 % (0.0-1.0); %Eosinophils 2.4 % (0.0-10.0); %Neutrophils 76.1 % (42.0-75.0); Mean Corpuscular HGB CONC 34.5 g/dL (32.0-36.0); Mean Corpuscular Hemoglobin 33.7 pg (27.0-31.0); Mean Corpuscular Volume 97.9 fL (78.0-98.0); Platelet Count 187 thou/uL (130-400); RBC Distribution Width 13.7 % (11.5-14.5); Red Blood Cell (RBC) Count 3.27 mill/uL (4.70-6.10); White Blood Cell (WBC) Count 18.5 thou/uL (4.8-10.8)
[2021-11-01] MEDS: [UNRECOGNIZED DRUG - OTHER] SSW SCH ×3 (09:56→21:53)
[2021-11-01] MEDS: LIDOCAINE 2% SSW SCH ×3 (09:56→21:53)
[2021-11-01] MEDS: NYSTATIN SSW SCH ×3 (09:56→21:53)
[2021-11-01] MEDS: Enoxaparin Sodium 40 MG/0.4 ML SYRINGE SC SCH (09:56)
[2021-11-01] MEDS: Zinc Sulfate 220 MG CAP PO SCH (09:57)
[2021-11-01] MEDS: Spironolactone 100 MG TAB PO SCH (09:57)
[2021-11-01] MEDS: Multivit, Therapeutic 1 TAB PO SCH (09:57)
[2021-11-01] MEDS: Amlodipine 5 MG TAB PO SCH ×2 (09:57→21:51)
[2021-11-01] MEDS: Ascorbic Acid 500 mg Chewable Tablet PO SCH (09:57)
[2021-11-01] MEDS: guaiFENesin ER 600 MG TAB PO SCH ×2 (09:58→21:52)
[2021-11-01] MEDS: Torsemide 20 MG TAB PO SCH (09:58)
[2021-11-01] MEDS: Thiamine 100 MG TAB PO SCH (09:58)
[2021-11-01] MEDS: Folic Acid 1 MG TAB PO SCH (09:58)
[2021-11-01] MEDS: Fluconazole In NaCl,Iso-Osm 200 MG in Premix Bag 1 BAG IVPB SCH (09:58)
[2021-11-01 14:31] VITALS: BMI 26.6
[2021-11-01] MEDS: Acetaminophen 500 MG TAB PO PRN (15:18)
[2021-11-01] MEDS: Ciprofloxacin 0.2% Otic (0.25ML CONTAINER) EA EAR SCH ×2 (15:18→21:52)
[2021-11-02] MEDS: Albuterol 200 PUFF (6.7GM INHALER) INH SCH ×5 (03:37→19:12)
[2021-11-02] MEDS: Mometasone 200 MCG/Formoterol 5 MCG 120 PUFF INHALER INH SCH ×2 (05:22→19:13)
[2021-11-02 08:51] LABS: #Basophils 0.1 thou/uL (0.0-0.2); #Eosinphils 0.3 thou/uL (0.0-0.7); #Lymphocytes 1.6 thou/uL (1.20-3.40); #Monocytes 1.8 thou/uL (0.11-0.59); #Neutrophils 13.5 thou/uL (1.40-6.50); %Basophils 0.4 % (0.0-1.0); %Eosinophils 1.5 % (0.0-10.0); %Lymphocytes 9.1 % (21.0-51.0); %Monocytes 10.5 % (0.0-10.0); %Neutrophils 78.6 % (42.0-75.0); Hemoglobin 10.6 g/dL (14.0-18.0); Mean Corpuscular HGB CONC 34.2 g/dL (32.0-36.0); Mean Corpuscular Hemoglobin 33.5 pg (27.0-31.0); Mean Corpuscular Volume 97.8 fL (78.0-98.0); Platelet Count 190 thou/uL (130-400); RBC Distribution Width 13.7 % (11.5-14.5); Red Blood Cell (RBC) Count 3.18 mill/uL (4.70-6.10); White Blood Cell (WBC) Count 17.2 thou/uL (4.8-10.8)
[2021-11-02 09:06] LABS: Anion Gap 13 mmol/L (10-20); BUN (Urea Nitrogen) 19 mg/dL (8.4-25.7); Calc. Creatinine Clearance 145 mL/min (70-130); Calcium 8.3 mg/dL (7.8-10.44); Carbon Dioxide 22 mmol/L (22-29); Chloride 98 mmol/L (98-107); Glucose 105 mg/dL (70-105); Potassium 3.9 mmol/L (3.5-5.1); Sodium 129 mmol/L (136-145)
[2021-11-02] MEDS: Fluconazole In NaCl,Iso-Osm 200 MG in Premix Bag 1 BAG IVPB SCH (10:02)
[2021-11-02] MEDS: Enoxaparin Sodium 40 MG/0.4 ML SYRINGE SC SCH (10:03)
[2021-11-02] MEDS: Sodium Bicarbonate Tab 325 MG TAB PO SCH ×3 (10:03→20:20)
[2021-11-02] MEDS: Ascorbic Acid 500 mg Chewable Tablet PO SCH (10:03)
[2021-11-02] MEDS: Thiamine 100 MG TAB PO SCH (10:04)
[2021-11-02] MEDS: Amlodipine 5 MG TAB PO SCH ×2 (10:04→20:20)
[2021-11-02] MEDS: Zinc Sulfate 220 MG CAP PO SCH (10:04)
[2021-11-02] MEDS: Spironolactone 100 MG TAB PO SCH (10:05)
[2021-11-02] MEDS: guaiFENesin ER 600 MG TAB PO SCH ×2 (10:05→20:21)
[2021-11-02] MEDS: [UNRECOGNIZED DRUG - OTHER] SSW SCH ×3 (10:05→20:21)
[2021-11-02] MEDS: NYSTATIN SSW SCH ×3 (10:05→20:21)
[2021-11-02] MEDS: LIDOCAINE 2% SSW SCH ×3 (10:05→20:21)
[2021-11-02] MEDS: Torsemide 20 MG TAB PO SCH (10:09)
[2021-11-02] MEDS: Folic Acid 1 MG TAB PO SCH (10:09)
[2021-11-02] MEDS: Ciprofloxacin 0.2% Otic (0.25ML CONTAINER) EA EAR SCH (10:10)
[2021-11-02] MEDS: Multivit, Therapeutic 1 TAB PO SCH (10:10)
[2021-11-02] MEDS ORDERED: Metoprolol Tartrate 5 MG/5 ML VIAL IVP PRN (19:34)
[2021-11-03] MEDS: Albuterol 200 PUFF (6.7GM INHALER) INH SCH ×5 (00:03→13:41)
[2021-11-03 04:40] LABS: #Basophils 0.1 thou/uL (0.0-0.2); #Eosinphils 0.1 thou/uL (0.0-0.7); #Lymphocytes 1.8 thou/uL (1.20-3.40); #Monocytes 1.1 thou/uL (0.11-0.59); %Basophils 0.5 % (0.0-1.0); %Eosinophils 0.8 % (0.0-10.0); %Lymphocytes 12.5 % (21.0-51.0); %Monocytes 7.9 % (0.0-10.0); %Neutrophils 78.3 % (42.0-75.0); Hemoglobin 10.7 g/dL (14.0-18.0); Mean Corpuscular HGB CONC 33.6 g/dL (32.0-36.0); Mean Corpuscular Hemoglobin 32.9 pg (27.0-31.0); Mean Corpuscular Volume 98.1 fL (78.0-98.0); Mean Platelet Volume 7.3 fL (7.4-10.4); Platelet Count 204 thou/uL (130-400); RBC Distribution Width 13.7 % (11.5-14.5); Red Blood Cell (RBC) Count 3.23 mill/uL (4.70-6.10)
[2021-11-03 05:03] LABS: Anion Gap 11 mmol/L (10-20); BUN (Urea Nitrogen) 19 mg/dL (8.4-25.7); Calc. Creatinine Clearance 130 mL/min (70-130); Calcium 8.2 mg/dL (7.8-10.44); Carbon Dioxide 23 mmol/L (22-29); Chloride 96 mmol/L (98-107); Glucose 140 mg/dL (70-105); Potassium 3.3 mmol/L (3.5-5.1); Sodium 127 mmol/L (136-145)
[2021-11-03] MEDS ORDERED: Potassium Chloride 20 MEQ TAB PO SCH (05:30)
[2021-11-03] MEDS: Mometasone 200 MCG/Formoterol 5 MCG 120 PUFF INHALER INH SCH (05:40)
[2021-11-03] MEDS ORDERED: Fluconazole 100 MG TAB PO SCH (09:00)
[2021-11-03] MEDS: Ascorbic Acid 500 mg Chewable Tablet PO SCH (09:01)
[2021-11-03] MEDS: Amlodipine 5 MG TAB PO SCH (09:01)
[2021-11-03] MEDS: Spironolactone 100 MG TAB PO SCH (09:01)
[2021-11-03] MEDS: Sodium Bicarbonate Tab 325 MG TAB PO SCH (09:02)
[2021-11-03] MEDS: Multivit, Therapeutic 1 TAB PO SCH (09:02)
[2021-11-03] MEDS: Folic Acid 1 MG TAB PO SCH (09:02)
[2021-11-03] MEDS: guaiFENesin ER 600 MG TAB PO SCH (09:02)
[2021-11-03] MEDS: NYSTATIN SSW SCH ×2 (09:03→15:10)
[2021-11-03] MEDS: Enoxaparin Sodium 40 MG/0.4 ML SYRINGE SC SCH (09:03)
[2021-11-03] MEDS: Torsemide 20 MG TAB PO SCH (09:03)
[2021-11-03] MEDS: Zinc Sulfate 220 MG CAP PO SCH (09:03)
[2021-11-03] MEDS: LIDOCAINE 2% SSW SCH ×2 (09:03→15:10)
[2021-11-03] MEDS: [UNRECOGNIZED DRUG - OTHER] SSW SCH ×2 (09:03→15:10)
[2021-11-03] MEDS: Thiamine 100 MG TAB PO SCH (09:03)
[2021-11-03] MEDS ORDERED: Sodium Chloride 0.9% 500 ML IV SCH (13:15)
[2021-11-03 15:33] VITALS: BP 114/67; TEMP 98.6
[2021-11-03 16:16] LABS: Calcium 8.1 mg/dL (7.8-10.44); Chloride 97 mmol/L (98-107); Potassium 3.9 mmol/L (3.5-5.1); Sodium 130 mmol/L (136-145)
[2021-11-03 16:17] LABS: Anion Gap 14 mmol/L (10-20); BUN (Urea Nitrogen) 15 mg/dL (8.4-25.7); Calc. Creatinine Clearance 129 mL/min (70-130); Carbon Dioxide 23 mmol/L (22-29); Glucose 103 mg/dL (70-105)
== END 2021-11-03 17:35 | disposition home or self-care (01) | DRG 177 ==
LOC: EDBD 12:53 → ERS 12:53 → 2SW 16:13 → OBSVTOIN 10-17 09:12 → 2NO 10-30 17:12
PROVIDERS: ADMIT Internal Medicine; ATTEND Internal Medicine
PROC: 8E0ZXY6 Isolation (ICD-10-PCS; principal; 2021-10-17)
DX: U07.1 COVID-19 (principal); J96.01 Acute respiratory failure with hypoxia; J44.1 Chronic obstructive pulmonary disease with (acute) exacerbation; E87.1 Hypo-osmolality and hyponatremia; B37.0 Candidal stomatitis; K70.30 Alcoholic cirrhosis of liver without ascites; I10 Essential (primary) hypertension; E77.8 Other disorders of glycoprotein metabolism; K42.9 Umbilical hernia without obstruction or gangrene; D64.9 Anemia, unspecified; D72.829 Elevated white blood cell count, unspecified; R00.0 Tachycardia, unspecified; T38.0X5A Adverse effect of glucocorticoids and synthetic analogues, initial encounter; R73.9 Hyperglycemia, unspecified; Z88.1 Allergy status to other antibiotic agents; Z88.8 Allergy status to other drugs, medicaments and biological substances; Z79.51 Long term (current) use of inhaled steroids; Z79.899 Other long term (current) drug therapy
CPT/HCPCS: 36415; 71045; 71275; 80048; 80053; 80074; 81003; 82728; 83735; 83880; 84100; 84484; 85025; 85379; 86140; 87040; 87389; 93005; 93010; 96365; 96366; 96372; 96375; G0378; J1450; J1650; J1956; J2920; J3475; J3490; J7030; J8540; U0002

== ENCOUNTER 2022-04-30 09:12 | Outpatient (CLI) | payer MEDICAID | END 2022-04-30 09:13 | disposition home or self-care (01) | LOC: RAD 09:12 | PROVIDERS: ATTEND Surgery | DX: S32.009A Unspecified fracture of unspecified lumbar vertebra, initial encounter for closed fracture (principal); M43.8X6 Other specified deforming dorsopathies, lumbar region | CPT/HCPCS: 72100 ==

== ENCOUNTER 2022-05-01 14:24 | Inpatient (IN) | payer MEDICAID ==
[~2022-05-01 14:24] MED LIST: Iopamidol-370 76% 500 ML 1 ML ONE
[2022-05-01] MEDS ORDERED: methylPREDNISolone Sod Succ/PF 125 MG/2 ML VIAL ONE (14:43)
[2022-05-01 14:57] LABS: #Lymphocytes 1.3 thou/uL (1.20-3.40); #Monocytes 0.2 thou/uL (0.11-0.59); #Neutrophils 11.9 thou/uL (1.40-6.50); %Basophils 0.1 % (0.0-1.0); %Eosinophils 0.2 % (0.0-10.0); %Lymphocytes 9.3 % (21.0-51.0); %Monocytes 1.5 % (0.0-10.0); Hemoglobin 10.4 g/dL (14.0-18.0); Mean Corpuscular HGB CONC 32.2 g/dL (32.0-36.0); Mean Corpuscular Hemoglobin 26.1 pg (27.0-31.0); Mean Corpuscular Volume 80.9 fL (78.0-98.0); Mean Platelet Volume 8.2 fL (7.4-10.4); Platelet Count 379 thou/uL (130-400); RBC Distribution Width 16.7 % (11.5-14.5); Red Blood Cell (RBC) Count 3.99 mill/uL (4.70-6.10); White Blood Cell (WBC) Count 13.4 thou/uL (4.8-10.8)
[2022-05-01 15:46] LABS: SARS-CoV-2 NAA Rapid Test DETECTED (NotDetected)
[2022-05-01 15:46] LABS: Actual Bicarbonate (HCO3a) 23.4 mEq/L (22-28); Analyzer IN Cardio ER; Base Excess (BEa) 3.4 mEq/L (-2.0 to +3.0); CO2 Tension 22.5 mmHg (35.0-45.0); Calcium, Ionized (arterial) 1.08 mmol/L (1.12-1.30); Carboxyhemoglobin (COHb) 0.5 gm% (0.0-3.0); Hemoglobin (Hb) 10.8 g/dL (14.0-18.0); O2 Tension (PaO2), arterial 100.5 mmHg (> 80.0); Potassium - ABG Lab 3.65 mmol/L (3.70-5.30); Puncture Site RRA; pH, Arterial 7.63 (7.35-7.45)
[2022-05-01 15:47] LABS: ALV-art Gradient 21.105 mmHg (0-20)
[2022-05-01 16:07] LABS: ALT (SGPT) 36 U/L (8-55); AST (SGOT) 33 U/L (5-34); Alkaline Phosphatase 164 U/L (40-110); Anion Gap 22 mmol/L (10-20); BUN (Urea Nitrogen) 9 mg/dL (8.4-25.7); Bilirubin, Total 0.4 mg/dL (0.2-1.2); Calc. Creatinine Clearance 0 mL/min (70-130); Calcium 9.1 mg/dL (7.8-10.44); Carbon Dioxide 21 mmol/L (22-29); Chloride 96 mmol/L (98-107); Estimated GFR 81; Globulin 3.3 g/dL (2.4-3.5); Glucose 120 mg/dL (70-105); Magnesium 1.7 mg/dL (1.6-2.6); Potassium 4.2 mmol/L (3.5-5.1); Protein, Total 7.3 g/dL (6.0-8.3); Sodium 135 mmol/L (136-145)
[2022-05-01] MEDS ORDERED: Ondansetron PF 4 MG/2 ML Vial IVP PRN (19:52)
[2022-05-01] MEDS: Mometasone 200 MCG/Formoterol 5 MCG 120 PUFF INHALER INH SCH (20:04)
[2022-05-01] MEDS ORDERED: hydrALAZINE 20 MG/ML VIAL SLOW IVP PRN (20:18)
[2022-05-01 20:55] VITALS: BMI 27.7
[2022-05-01] MEDS: Albuterol 200 PUFF (6.7GM INHALER) INH SCH (21:02)
[2022-05-01] MEDS: Apixaban 5 MG TAB PO SCH (21:02)
[2022-05-01] MEDS: Acetaminophen 325 MG TAB PO PRN (22:18)
[2022-05-01] MEDS: traMADol HCl 50 MG TAB PO PRN (22:18)
[2022-05-02] MEDS: Albuterol 200 PUFF (6.7GM INHALER) INH SCH ×6 (02:02→22:36)
[2022-05-02 06:21] LABS: #Lymphocytes 0.8 thou/uL (1.20-3.40); #Monocytes 0.3 thou/uL (0.11-0.59); %Basophils 0.3 % (0.0-1.0); %Eosinophils 0.2 % (0.0-10.0); %Lymphocytes 6.9 % (21.0-51.0); %Monocytes 2.3 % (0.0-10.0); %Neutrophils 90.3 % (42.0-75.0); Hemoglobin 9.8 g/dL (14.0-18.0); Mean Corpuscular HGB CONC 31.8 g/dL (32.0-36.0); Mean Corpuscular Hemoglobin 26.1 pg (27.0-31.0); Mean Platelet Volume 7.9 fL (7.4-10.4); Platelet Count 326 thou/uL (130-400); RBC Distribution Width 16.5 % (11.5-14.5); Red Blood Cell (RBC) Count 3.74 mill/uL (4.70-6.10); White Blood Cell (WBC) Count 12.2 thou/uL (4.8-10.8)
[2022-05-02 06:45] LABS: Anion Gap 14 mmol/L (10-20); BUN (Urea Nitrogen) 13 mg/dL (8.4-25.7); Calc. Creatinine Clearance 132 mL/min (70-130); Calcium 8.9 mg/dL (7.8-10.44); Carbon Dioxide 25 mmol/L (22-29); Chloride 98 mmol/L (98-107); Estimated GFR 101; Glucose 136 mg/dL (70-105); Potassium 3.7 mmol/L (3.5-5.1); Sodium 133 mmol/L (136-145)
[2022-05-02] MEDS: Mometasone 200 MCG/Formoterol 5 MCG 120 PUFF INHALER INH SCH ×2 (06:54→17:16)
[2022-05-02] MEDS: methylPREDNISolone Sod Succ 40 MG VIAL IVP SCH ×2 (08:03→21:55)
[2022-05-02] MEDS: Apixaban 5 MG TAB PO SCH ×2 (08:03→21:55)
[2022-05-02] MEDS ORDERED: Non-Formulary Item 1 EACH (Lactulose 10 Gm/15ml Oral Sol 10 GM/15 ML Ml) PO SCH (09:00)
[2022-05-02] MEDS ORDERED: Prevnar 13-Val Conj/PF 0.5 ML SYRINGE IM ONE (09:00)
[2022-05-02] MEDS: traMADol HCl 50 MG TAB PO PRN ×3 (10:24→21:55)
[2022-05-02] MEDS: Spironolactone 100 MG TAB PO SCH (10:24)
[2022-05-02] MEDS: Bumetanide 1 MG TAB PO SCH ×2 (10:24→21:53)
[2022-05-02] MEDS: Amlodipine 5 MG TAB PO SCH (10:24)
[2022-05-02] MEDS ORDERED: Thiamine 100 MG TAB PO SCH (16:00)
[2022-05-02] MEDS ORDERED: Zinc Sulfate 220 MG CAP PO SCH (16:00)
[2022-05-02] MEDS ORDERED: Ascorbic Acid 500 mg Chewable Tablet PO SCH (16:00)
[2022-05-02] MEDS ORDERED: Cholecalciferol 1,000 UNITS (25 MCG) TAB PO SCH (16:00)
[2022-05-02] MEDS: Acetaminophen 325 MG TAB PO PRN (21:54)
[2022-05-03] MEDS: Albuterol 200 PUFF (6.7GM INHALER) INH SCH ×3 (02:49→10:30)
[2022-05-03 05:56] LABS: Anion Gap 12 mmol/L (10-20); BUN (Urea Nitrogen) 19 mg/dL (8.4-25.7); Calc. Creatinine Clearance 131 mL/min (70-130); Calcium 9.1 mg/dL (7.8-10.44); Carbon Dioxide 29 mmol/L (22-29); Chloride 98 mmol/L (98-107); Estimated GFR 101; Glucose 153 mg/dL (70-105); Potassium 3.6 mmol/L (3.5-5.1); Sodium 135 mmol/L (136-145)
[2022-05-03] MEDS: Mometasone 200 MCG/Formoterol 5 MCG 120 PUFF INHALER INH SCH (06:14)
[2022-05-03 07:17] LABS: Hemoglobin 9.5 g/dL (14.0-18.0); Mean Corpuscular HGB CONC 31.4 g/dL (32.0-36.0); Mean Corpuscular Hemoglobin 26.4 pg (27.0-31.0); Mean Platelet Volume 8.1 fL (7.4-10.4); Platelet Count 339 thou/uL (130-400); Red Blood Cell (RBC) Count 3.59 mill/uL (4.70-6.10); White Blood Cell (WBC) Count 22.2 thou/uL (4.8-10.8)
[2022-05-03 08:35] LABS: Band 4 % (5-11); Hypochromia SLIGHT = 6-15 cells (100X) (0-5/hpf); Lymphocytes 3 % (21-51); MDiff Complete? YES; Monocytes 4 % (0-10); Neutrophil 89 % (42-75); Platelet Morphology Comment Appears Adequate; Polychromasia SLIGHT = 2-3 cells (100X) (0-2/hpf)
[2022-05-03] MEDS: Amlodipine 5 MG TAB PO SCH (08:46)
[2022-05-03] MEDS: Apixaban 5 MG TAB PO SCH (08:47)
[2022-05-03] MEDS: Bumetanide 1 MG TAB PO SCH (08:47)
[2022-05-03] MEDS: Spironolactone 100 MG TAB PO SCH (08:48)
[2022-05-03] MEDS: methylPREDNISolone Sod Succ 40 MG VIAL IVP SCH (08:48)
[2022-05-03] MEDS ORDERED: Zinc Sulfate 220 MG CAP PO SCH (09:00)
[2022-05-03] MEDS ORDERED: Ascorbic Acid 500 mg Chewable Tablet PO SCH (09:00)
[2022-05-03] MEDS ORDERED: Cholecalciferol 1,000 UNITS (25 MCG) TAB PO SCH (09:00)
[2022-05-03] MEDS ORDERED: Thiamine 100 MG TAB PO SCH (09:00)
[2022-05-03] MEDS: Acetaminophen 325 MG TAB PO PRN (10:12)
[2022-05-03] MEDS: traMADol HCl 50 MG TAB PO PRN (10:13)
[2022-05-03] MEDS ORDERED: predniSONE 50 MG TAB PO SCH ×2 (10:49→11:00)
[2022-05-03 11:44] VITALS: BP 144/70; TEMP 98.3
[2022-05-04] MEDS ORDERED: predniSONE 50 MG TAB PO SCH (08:00)
== END 2022-05-03 14:34 | disposition home or self-care (01) | DRG 177 ==
LOC: ERS 14:24 → T4-B 17:17 → OBSVTOIN 05-02 15:55
PROVIDERS: ADMIT Family Medicine; ATTEND Internal Medicine
PROC: 8E0ZXY6 Isolation (ICD-10-PCS; principal; 2022-05-02)
DX: U07.1 COVID-19 (principal); J96.01 Acute respiratory failure with hypoxia; I50.32 Chronic diastolic (congestive) heart failure; J44.1 Chronic obstructive pulmonary disease with (acute) exacerbation; J98.11 Atelectasis; I48.0 Paroxysmal atrial fibrillation; F17.210 Nicotine dependence, cigarettes, uncomplicated; K70.31 Alcoholic cirrhosis of liver with ascites; I11.0 Hypertensive heart disease with heart failure; Z86.718 Personal history of other venous thrombosis and embolism; Z86.711 Personal history of pulmonary embolism; Z79.01 Long term (current) use of anticoagulants; Z88.1 Allergy status to other antibiotic agents; Z88.8 Allergy status to other drugs, medicaments and biological substances; Z79.899 Other long term (current) drug therapy
CPT/HCPCS: 36415; 36600; 71045; 71275; 74177; 80048; 80053; 82805; 83735; 83880; 84145; 84484; 85025; 86140; 93005; 94640; 96374; G0378; J1956; J2920; J2930; J7512; J7620; Q9967; U0002